=== PATIENT | female | born 1955 | race Caucasian/White ===

== ENCOUNTER → 2018-11-01 | Outpatient (CLI) | payer BC ==
[~2018-11-01] VITALS: Ht 162.6 cm; Wt 87.1 kg
[~2018-11-01] MED LIST: ASPIR 8181 MG PO; CRESTOR10 MG PO; NEXIUM40 MG PO; PRINIVIL20 MG PO
[2018-11-01 11:22] LABS: HEMATOCRIT 41.1 % (37.0-47.0); HEMOGLOBIN 13.7 gm/dL (12.0-15.0); MCH 32.1 pg (26.0-34.0); MCHC 33.4 g/dL (28.0-37.0); MCV 96.1 fL (80.0-100.0); MPV 10.1 fl. (7.2-11.1); RBC 4.28 mil/uL (4.20-5.00); RDW-CV 13.2 % (10.5-14.5)
[2018-11-01 11:29] VITALS: BP 115/65
[2018-11-01 11:29] LABS: APTT 25.8 Seconds (25.0-31.3)
[2018-11-01 11:45] LABS: ANION GAP 9 mmol/L (7-16); BUN 15 mg/dL (7-18); CALCIUM 9.3 mg/dL (8.5-10.1); CHLORIDE 100 mmol/L (98-107); CO2 28 mmol/L (21-32); CREATININE 0.7 mg/dL (0.6-1.3); GLUCOSE 108 mg/dL (70-99); POTASSIUM 4.4 mmol/L (3.5-5.1); SODIUM 137 mmol/L (136-145)
[2018-11-01 11:50] LABS: ALBUMIN 4.2 g/dL (3.4-5.0); ALKALINE PHOSPHATASE 126 U/L (46-116); CHOLESTEROL 190 mg/dL (<200); HDL CHOLESTEROL 69 mg/dL (>40); LDL CHOLESTEROL 97 mg/dL (<100); SGOT 17 U/L (15-37); SGPT 28 U/L (30-65); TC:HDL 2.8 Ratio (Not establshd); TOTAL BILIRUBIN 0.4 mg/dL (<0.1-1.0); TOTAL PROTEIN 7.6 g/dL (6.4-8.2); TRIGLYCERIDE 122 mg/dL (<150); VLDL 24 mg/dL (<40)
[2018-11-01 12:07] LABS: SERUM ASSESSMENT Clear
[2018-11-01 15:00] VITALS: BP 123/59
[2018-11-01 15:15] VITALS: BP 103/73
[2018-11-01 15:30] VITALS: BP 121/61
[2018-11-01 15:45] VITALS: BP 120/59
--- NOTE | 2018-11-01 16:43 | EKG ---
[place] [address] ELECTROCARDIOGRAM REPORT Name: ANNA ZAMARRIPA Room: [facility]#: [id number] Admission: 11/01/18 Attend Phys: Kristofer Grace MD Discharge: Date of : 59 Report #: [id number] THIS REPORT FOR: //name// [facility] Test Date: 2018-11-01 Test Time: 11:34:31 Pat Name: ANNA ZAMARRIPA Department: Room: Gender: F Fox Raiser: : 1955 Requested By: Yaakov Wagoner Order Number: [id number] Joseph RAMIREZ: Tristen Woodruff Measurements Intervals [place] Rate: 79 P: 54 TX: 177 QRS: 2 QRSD: 137 T: 166 QT: 419 QTc: 481 Interpretive Statements Sinus rhythm Left bundle branch block No previous ECG available for comparison Electronically Signed On 11-01-2018 16:43:00 MATERIAL RECLAIMER by Tristen Woodruff [email or web address] <ELECTRONICALLY SIGNED> By: Tristen Woodruff MD, [facility] 11/01/18 1643 1134 1134 Tristen Woodruff MD, FACC /EPI
--- NOTE | 2018-11-05 17:10 | CARD ---
[address] [address] CARDIAC CATH REPORT Name: ANNA ZAMARRIPA [id number]mission: 11/01/18 Attend Phys: Kristofer Grace MD Discharge: Date of : 59 Report #: [id number] THIS REPORT FOR: //name// APPROVED REPORT Study performed: 11/01/2018 13:40:23 Patient Details The patient is a 63 year-old female Event Personnel Yaakov Wagoner Analytical Manager, Marcy Toro RN Yoker Machine Operator, Elizabet Fischer RTTristan Monitor, Josey Gillespie [employer] Scrub, Connor Wallace Monitor, Samm Smith (R) Scrub Procedures Performed Left Heart Cath w/or w/o Coronaries [id number] [facility] , Left Heart CatheterizationHemostasis w/ Mynx Procedure Narrative A [place] 6 FR sheath was inserted into the right femoral artery. Coronary angiography was performed using coronary diagnostic catheters. The right coronary system was accessed and visualized with a JR4 catheter. The left coronary system was accessed and visualized with a JL4 catheter. The left ventricle was accessed and visualized with a Angled PIG catheter. The patient tolerated the procedure well and there were no complications associated with the procedure. Intraoperative Conscious Sedation Fentanyl 50 mcg Versed 3 mg Fluoro Time: 1.8 minutes Dose: DAP 45942 cGycm2 100 mGy Contrast Type and Amount: Visipaque 80 ml Coronary Angiography The patient's coronary anatomy is right dominant. Diagnostic Cath Left Main The patient has a common on bifurcating into the LAD and circumflex coronary arteries. LAD Normal in the proximal mid and distal portion. Diagonal 1 Normal and small in caliber. Circumflex Normal in the proximal mid and distal portion. OM1 Normal [place] [address] CARDIAC CATH REPORT Name: ANNA ZAMARRIPA Room: [facility]#: [id number] Admission: 11/01/18 Attend Phys: Kristofer Grace MD Discharge: Date of : 59 Report #: [id number] OM2 Normal and small in caliber. Right Coronary Normal in the proximal mid and distal portion. R PDA Normal. RPLV Normal and small in caliber. Left Ventriculography The left ventricle is normal in size with normal contractility. The left ventricular ejection fraction is estimated to be 60%. Hemodynamics The aortic pressure is 126/44 mmHg with a mean of 70 mmHg. The left ventricular pressure is 190/8 mmHg with a mean of mmHg. The left ventricular end diastolic pressure is 20 mmHg. Conclusion 1. Normal coronary arteries. 2. Normal left ventricular systolic function. 3. Mildly elevated left ventricular end-diastolic pressure. Recommendations 1. Continue medical management and risk factor modification. <ELECTRONICALLY SIGNED> By: Yaakov Wagoner MD, FACC 11/05/181709 09 09Michaethania Wagoner MD, FACC /INF
== END | disposition home or self-care (01) ==
LOC: M.CL 10:06
PROVIDERS: Internal Medicine Cardiovascular Disease
DX: I11.0 Hypertensive heart disease with heart failure (principal); I50.30 Unspecified diastolic (congestive) heart failure; E78.5 Hyperlipidemia, unspecified; K21.9 Gastro-esophageal reflux disease without esophagitis; Z87.891 Personal history of nicotine dependence; Z79.82 Long term (current) use of aspirin; Z79.899 Other long term (current) drug therapy